=== PATIENT | male | born 1975 | race Two or more races ===

== ENCOUNTER 2020-03-30 06:35 | Day surgery (SDC) | payer OTHER ==
[~2020-03-30 06:35] MED LIST: NORVASC5 MG PO
== END 2020-03-30 15:00 | disposition home or self-care (01) ==
LOC: CIR.AMB 06:35 → AMB-ENDOS 09:30 → CIR.AMB 09:30
PROVIDERS: ATTEND Colon & Rectal Surgery
DX: K64.8 Other hemorrhoids (principal); K64.4 Residual hemorrhoidal skin tags; Z20.828 Contact with and (suspected) exposure to other viral communicable diseases